=== PATIENT | male | born 2000 | race Caucasian/White ===

== ENCOUNTER 2022-06-26 18:31 | Emergency (ER) | payer MEDICAID ==
[~2022-06-26] VITALS: Ht 170.2 cm; Wt 87.0 kg
[2022-06-26] MEDS ORDERED: ACETAMINOPHEN 325MG TABLET PO ONE (19:00)
[2022-06-26 20:59] VITALS: BP 118/70
== END 2022-06-26 21:00 | disposition home or self-care (01) ==
LOC: ER 18:31
DX: R50.9 Fever, unspecified (principal); M79.10 Myalgia, unspecified site; Z20.822 Contact with and (suspected) exposure to COVID-19
CPT/HCPCS: 87426; 87804; 99283; C9803